=== PATIENT | male | born 1980 | race Caucasian/White ===

== ENCOUNTER 2019-03-07 09:12 | Emergency (ER) | payer OTHER ==
[~2019-03-07] VITALS: Ht 178 cm; Wt 102.7 kg
[2019-03-07] MEDS ORDERED: LACTATED RINGERS 1,000 ML IV ONE (09:26)
[2019-03-07] MEDS ORDERED: KETOROLAC 30 MG/ML VIAL IVP ONE (09:30)
[2019-03-07] MEDS ORDERED: ceFAZolin INJECTION 1,000 MG in WATER (STERILE) FOR INJECTION 10 ML IV ONE (09:30)
[2019-03-07] MEDS ORDERED: VANCOMYCIN INJECTION 1,000 MG in NS (IVPB) 250 ML IV ONE (09:30)
--- NOTE | 2019-03-07 09:38 | ED Integumentary General ---
General Chief Complaint: Facial Problems Stated Complaint: FACIAL SWELLING Source: patient Exam Limitations: no limitations History of Present Illness Date Seen by Provider: Mar 07, 2019 Time Seen by Provider: 09:18 Initial Comments Patient presents to ER by private conveyance from the [facility] with chief complaint of facial swelling, headache, pain, temperature yesterday of 100.0, skin and eye infection since about Tuesday, 6 days ago. He was seen in the clinic on Tuesday and started on Augmentin and topical eye antibiotics and it got worse so he went yesterday and they gave him a shot of Rocephin and added Bactrim DS in addition to Augmentin with follow-up today. When the clinic saw him today his redness has spread from the left side of his face to the right side. He has no known exposures. He has known known medical history and does not take any medications. He used to follow with [facility] but now goes to the clinic, [facility] as needed. No significant surgical history. He denies nausea or diarrhea. He rates his headache as a 6 out of 10, global, non-throbbing without photophobia or phonophobia. 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 On Tuesday he went out to inspect the site and started to have some itching and burning in his left eye that evening. Allergies and Home Medications Allergies Coded Allergies: No Known Drug Allergies (Unverified , 03/07/19) Patient Home Medication List Home Medication List Reviewed: Yes Review of Systems Review of Systems Constitutional: chills; No fever; malaise EENTM: No ear discharge, No ear pain Respiratory: No cough, No short of breath Cardiovascular: No chest pain, No edema Gastrointestinal: No abdominal pain, No constipation, No diarrhea, No dysphagia Genitourinary: No discharge, No dysuria Musculoskeletal: No back pain, No joint pain Skin: see HPI; No pruritus; rash All Other Systems Reviewed Negative Unless Noted: Yes Past Mnxnnae-Kuxfdq-Hcqtgw Hx Patient Social History Alcohol Use: Denies Use Recreational Drug Use: No Smoking Status: Current Everyday Smoker Type Used: Cigarettes (1 ppd) Recent Foreign Travel: No Physical Exam Vital Signs Vital Signs - First Documented 03/07/19 09:20 Temp 36.4 Pulse 84 Resp 18 B/P (MAP) 163/93 (116) Pulse Ox 96 O2 Delivery Room Air Capillary Refill : General Appearance: WD/WN, no apparent distress HEENT: PERRL/EOMI, TMs normal, pharynx normal, other (face left worse than right with erythema, cellulitic appearance, injected conjunctiva, mucoid mattering bilateral eyes) Neck: non-tender, full range of motion, supple, normal inspection Cardiovascular: normal peripheral pulses, regular rate, rhythm, no edema Respiratory: no respiratory distress, no accessory muscle use Neurologic/Psychiatric: no motor/sensory deficits, alert, normal mood/affect, oriented x 3 Skin: rash (erythema, swelling, mildly edematous face left worse than right) Skin Problem Character: erythema (indurated face) Progress/Results/Core Measures Results/Orders Lab Results Laboratory Tests Test 03/07/19 09:40 Range/Units White Blood Count 8.4 4.3-11.0 10^3/uL Red Blood Count 5.72 4.35-5.85 10^6/uL Hemoglobin 17.6 13.3-17.7 G/DL Hematocrit 51 40-54 % Mean Corpuscular Volume 90 80-99 FL Mean Corpuscular Hemoglobin 31 25-34 PG Mean Corpuscular Hemoglobin Concent 34 32-36 G/DL Red Cell Distribution Width 13.2 10.0-14.5 % Platelet Count 376 130-400 10^3/uL Mean Platelet Volume 8.7 7.4-10.4 FL Neutrophils (%) (Auto) 54 42-75 % Lymphocytes (%) (Auto) 27 12-44 % Monocytes (%) (Auto) 14 H 0-12 % Eosinophils (%) (Auto) 3 0-10 % Basophils (%) (Auto) 1 0-10 % Neutrophils # (Auto) 4.6 1.8-7.8 X 10^3 Lymphocytes # (Auto) 2.3 1.0-4.0 X 10^3 Monocytes # (Auto) 1.2 H 0.0-1.0 X 10^3 Eosinophils # (Auto) 0.3 0.0-0.3 10^3/uL Basophils # (Auto) 0.1 0.0-0.1 10^3/uL Prothrombin Time 14.5 12.2-14.7 SEC INR Comment 1.1 0.8-1.4 Activated Partial Thromboplast Time 31 24-35 SEC Sodium Level 139 135-145 MMOL/L Potassium Level 4.6 3.6-5.0 MMOL/L Chloride Level 102 98-107 MMOL/L Carbon Dioxide Level 23 21-32 MMOL/L Anion Gap 14 5-14 MMOL/L Blood Urea Nitrogen 11 7-18 MG/DL Creatinine 0.85 0.60-1.30 MG/DL Estimat Glomerular Filtration Rate > 60 BUN/Creatinine Ratio 13 Glucose Level 101 70-105 MG/DL Lactic Acid Level 1.47 0.50-2.00 MMOL/L Calcium Level 10.1 8.5-10.1 MG/DL Corrected Calcium 8.5-10.1 MG/DL Total Bilirubin 0.3 0.1-1.0 MG/DL Aspartate Amino Transf (AST/SGOT) 24 5-34 U/L Alanine Aminotransferase (ALT/SGPT) 35 0-55 U/L Alkaline Phosphatase 96 40-136 U/L Total Protein 8.0 6.4-8.2 GM/DL Albumin 4.9 H 3.2-4.5 GM/DL My Orders Orders - AZIZA PARKER Cbc With Automated Diff (03/07/19 09:) Comprehensive Metabolic Panel (03/07/19:) Blood Culture (03/07/19:) Protime With Inr (03/07/19:) Partial Thromboplastin Time (03/07/19:) Ed Iv/Invasive Line Start (03/07/19:) Lactic Acid Analyzer (03/07/19:) Lactated Ringers (Lr 1000 Ml Iv Solution (03/07/19:26) Cefazolin Injection (Ancef Injection) (03/07/19 09:30) Vancomycin Injection (Vancomycin Injecti (03/07/19 09:30) Ketorolac Injection (Toradol Injection) (03/07/19 09:30) Medications Given in ED Current Medications Medications Dose Ordered Sig/Ferny Route Start Time Stop Time Status Last Admin Dose Admin Cefazolin Sodium 1000 mg/Sterile Water 10 ml @ 200 mls/hr ONCE ONCE IV 03/07/19 09:30 03/07/19 09:32 DC 03/07/19 09:49 200 MLS/HR Ketorolac Tromethamine 30 mg ONCE ONCE IVP 03/07/19 09:30 03/07/19 09:31 DC 03/07/19 09:50 30 MG Lactated Ringer's 1,000 ml @ 0 mls/hr Q0M ONCE IV 03/07/19 09:26 03/07/19 09:31 DC 03/07/19 09:49 1,000 MLS/HR Vancomycin HCl 1000 mg/Sodium Chloride 250 ml @ 250 mls/hr ONCE ONCE IV 03/07/19 09:30 03/07/19 10:29 03/07/19 09:52 250 MLS/HR Vital Signs/I&O 03/07/19 09:20 Temp 36.4 Pulse 84 Resp 18 B/P (MAP) 163/93 (116) Pulse Ox 96 O2 Delivery Room Air Progress Progress Note : Time: 09:37 Progress Note Patient is on 2 oral antibiotics, topical antibiotics and has received a dose or Rocephin and his cellulitis has worsened therefore he has failed outpatient antibiotics. Plan to put him on Ancef and vancomycin IV. We'll obtain blood cultures and labs. We'll give him a liter of fluids. He is not tachycardic and has a history of elevated temperature but not fever. We'll give Toradol for his headache. If he has a significantly elevated white count or other worrisome labs then we may give him a second liter fluid to bring him up to 20 mL/kg. [facility] is on diversion for fourth floor but [facility] is able to accommodate him after some discharges. Departure Impression Primary Impression: Cellulitis of face Disposition: ADMITTED INPATIENT Condition: Stable Transfer Transfer Reason: Diversion Time Spoke to Accepting Phy: 10:08 Transfer Progress Notes [facility] at [facility] on diversion. 1008: Discussed case with Dr. Garcia and she agrees with admission to [facility]. She would like Zosyn and vancomycin. Transfer Facility: [facility] Method of Transfer: Private Vehicle Departure-Patient Inst. Referrals: RYLIE HART APRN (PCP) Primary Care Physician AZIZA PARKER Mar 07, 2019 09:38
[2019-03-07 09:51] LABS: BASOPHILS # (AUTO) 0.1 10^3/uL (0.0-0.1); BASOPHILS % (AUTO) 1 % (0-10); EOSINOPHILS # (AUTO) 0.3 10^3/uL (0.0-0.3); EOSINOPHILS % (AUTO) 3 % (0-10); HEMATOCRIT 51 % (40-54); HEMOGLOBIN 17.6 G/DL (13.3-17.7); LYMPHOCYTES # (AUTO) 2.3 X 10^3 (1.0-4.0); LYMPHOCYTES % (AUTO) 27 % (12-44); MEAN CORPUSCULAR HEMOGLOBIN 31 PG (25-34); MEAN CORPUSCULAR HGB CONC 34 G/DL (32-36); MEAN CORPUSCULAR VOLUME 90 FL (80-99); MEAN PLATELET VOLUME 8.7 FL (7.4-10.4); MONOCYTES # (AUTO) 1.2 X 10^3 (0.0-1.0); MONOCYTES % (AUTO) 14 % (0-12); NEUTROPHILS # (AUTO) 4.6 X 10^3 (1.8-7.8); NEUTROPHILS % (AUTO) 54 % (42-75); PLATELET COUNT 376 10^3/uL (130-400); RED CELL DISTRIBUTION WIDTH 13.2 % (10.0-14.5); WHITE BLOOD COUNT 8.4 10^3/uL (4.3-11.0)
[2019-03-07 09:58] LABS: INR 1.1 (0.8-1.4); PROTHROMBIN TIME PATIENT 14.5 SEC (12.2-14.7)
[2019-03-07 10:06] LABS: ALANINE AMINOTRANSFERASE 35 U/L (0-55); ALBUMIN 4.9 GM/DL (3.2-4.5); ALKALINE PHOSPHATASE 96 U/L (40-136); BILIRUBIN,TOTAL 0.3 MG/DL (0.1-1.0); BUN/CREATININE RATIO 13; CALCIUM 10.1 MG/DL (8.5-10.1); CARBON DIOXIDE 23 MMOL/L (21-32); CHLORIDE 102 MMOL/L (98-107); CREATININE SERUM 0.85 MG/DL (0.60-1.30); GFR ESTIMATED > 60; GLUCOSE 101 MG/DL (70-105); POTASSIUM 4.6 MMOL/L (3.6-5.0); SODIUM 139 MMOL/L (135-145)
[2019-03-07 11:35] VITALS: BP 158/88
== END 2019-03-07 11:39 | disposition other institution (70) ==
LOC: ER FS 09:15
DX: L03.211 Cellulitis of face (principal); F17.210 Nicotine dependence, cigarettes, uncomplicated
CPT/HCPCS: 36415; 80053; 83605; 85025; 85610; 85730; 87040